=== PATIENT | male | born 1990 | race Caucasian/White ===

== ENCOUNTER 2018-08-27 09:12 | Emergency (ER) | payer OTHER ==
[2018-08-27 09:24] VITALS: BP 129/83; PULSE 97; TEMP 97.9; BMI 25.1
--- NOTE | 2018-08-27 09:51 | PDOC ---
History of Present Illness - General Chief Complaint: Rash Stated Complaint: MRSA COMPLAIN Time Seen by Provider: 08/27/18 09:32 History Source: Patient Exam Limitations: No Limitations - History of Present Illness Initial Comments: CHIEF COMPLAINT: 27 y/o afebrile male with recurrent abscesses x 3 months. HISTORY OF PRESENT ILLNESS: The patient states he has two small open ones on his arm. He also has a painful one under his right arm. He denies fever. He has no regular doctor so he's never followed up. He does shave his arms and his underarms. Vital signs on arrival are within normal limits. REVIEW OF SYSTEMS: GENERAL/CONSTITUTIONAL: No fever/chills. No weakness. No weight change. MUSCULOSKELETAL: No joint or muscle swelling or pain. No neck or back pain. SKIN: Abscesses to arms and underarms x 3 months. NEUROLOGIC: No headache, vertigo, loss of consciousness, or loss of sensation. PHYSICAL EXAM: VITAL_SIGNS: within normal limits GENERAL_APPEARANCE: alert, cooperative, no obvious discomfort. MENTAL_STATUS: speech clear, oriented X 3, responds appropriately to questions. NEURO: motor intact and sensory intact in injured extremity. EXTREMITIES: good pulse in injured extremity, affected area on extremity has mild erythema, mild swelling, mild tenderness and no abrasions\lacerations. SKIN: Small open wound on left and right forearm. Hard abscess to right axillary region without fluctuance. Past History - Past Medical History Home Medications: Ambulatory Orders Cephalexin Monohydrate [Keflex -] 500 mg PO Q8H #21 capsule 08/27/18 Sulfamethoxazole/Trimethoprim [Bactrim Ds -] 1 tab PO BID #14 tablet 08/27/18 COPD: No - Immunization History Immunization Up to Date: No - Suicide/Smoking/Psychosocial Hx Smoking History: Former smoker Have you smoked in the past 12 months: Yes If you are a former smoker, when did you quit?: APRIL 2018 Information on smoking cessation initiated: No Hx Alcohol Use: No Drug/Substance Use Hx: No *Physical Exam - Vital Signs Last Vital Signs Temp Pulse Resp BP Pulse Ox 97.9 F 97 H 18 129/83 100 08/27/18 09:21 08/27/18 09:21 08/27/18 09:21 08/27/18 09:21 08/27/18 09:21 Medical Decision Making - Medical Decision Making A/P: 27 y/o male with hard abscess to right axillary region and 2 open ones on his forearms. Will send rx for keflex and bactrim. Suggested he f/u with Dr. Meadows and Dr. Caballero for recurrent issue. Suggested he stop shaving. The patient verbalizes understanding of all instructions, has no further questions and is awaiting discharge. *DC/Admit/Observation/Transfer Diagnosis at time of Disposition: Abscess - Discharge Dispostion Disposition: HOME Condition at time of disposition: Good - Referrals Referrals: Robyn Caballero MD [Staff Physician] - Gt Meadows MD [Staff Physician] - Call tomorrow - Patient Instructions Printed Discharge Instructions: DI for Skin Abscess Additional Instructions: Discharge Instructions: -you have recurrent skin abscesses, caused by bacteria on your skin -2 antibiotics have been sent to your pharmacy; please take as prescribed -apply warm compresses to affected areas -Do not shave your arms and underarms -Call Dr. Meadows and Dr. Caballero tomorrow to schedule follow up appointments - Post Discharge Activity Forms/Work/School Notes: Back to Work
== END 2018-08-27 09:59 | disposition home or self-care (01) ==
LOC: JERFT 09:12
DX: L02.411 Cutaneous abscess of right axilla (principal); L02.414 Cutaneous abscess of left upper limb; L02.413 Cutaneous abscess of right upper limb
CPT/HCPCS: 99281-25